=== PATIENT | female | born 1980 | race Caucasian/White ===

== ENCOUNTER 2018-06-11 21:48 | Inpatient (IN) ==
[2018-06-11] MEDS ORDERED: ZALEPLON 5 MG CAPSULE PO ONE (22:49)
[2018-06-11 23:15] LABS: Basophils % 0.3 % (0.0-0.8); Eosinophils # 0.1 10*3/uL (0.0-0.87); Eosinophils % 0.8 % (0.00-10.9); Hematocrit 31.5 VOL% (35.7-47.0); Hemoglobin 10.4 GM/DL (12.0-16.0); Immature Granulocytes % 0.7 %; Immature Granulocytes Absolute 0.05 #; Lymphocytes # 1.5 10*3/uL (1.4-4.0); Lymphocytes % 20.6 % (21.3-54.2); Mean Corpuscular Hemoglobin 29 PG (27-34); Mean Corpuscular Volume 86.5 FL (87-102); Mean Platelet Volume 11.4 FL (9.6-12.0); Monocytes # 0.6 10*3/uL (0.11-0.8); Monocytes % 7.6 % (1.7-12.7); Neutrophils # 5.2 10*3/uL (1.4-7.4); Platelet Count 175 T/CUMM (130-400); Red Blood Count 3.64 MC/CUMM (3.8-5.5); Red Cell Distribution Width 14.7 % (9.3-17.3); White Blood Count 7.4 T/CUMM (4-12)
[2018-06-11 23:30] LABS: INR 1.1; PT Patient Result 11.9 SECS; Partial Thromboplastin Time 33.9 SECS (0-40)
[2018-06-11 23:38] LABS: Alanine Aminotransferase 10 U/L (13-56); Albumin 2.9 G/DL (3.4-5.0); Alkaline Phosphatase 159 U/L (45-117); Aspartate Amino Transferase 8 U/L (0-37); Bilirubin,Total < 0.39 MG/DL (0.2-1.0); Blood Urea Nitrogen 11 MG/DL (7-18); Calcium 9.1 MG/DL (8.5-10.1); Glucose 69 MG/DL (74-106); Osmolality,Calculated 271.7 MOS/KG (273-304); Sodium 138 MMOL/L (136-145); Total Protein 6.2 G/DL (6.4-8.3); Uric Acid 5.5 MG/DL (2.6-6.0)
[2018-06-12] MEDS: LACTATED RINGERS 1,000 ML IV SCH ×3 (02:00→15:59)
[2018-06-12] MEDS ORDERED: OXYTOCIN/LR 20 UNIT/1,000 ML BAG IV SCH (02:00)
[2018-06-12] MEDS ORDERED: AMPICILLIN INJ 2,000 MG in SODIUM CHLORIDE 0.9% 100 ML IV ONE (02:00)
[2018-06-12] MEDS: ONDANSETRON 4 MG/2 ML VIAL IV PRN ×2 (05:32→12:33)
[2018-06-12] MEDS: MEPERIDINE 50 MG/1 ML VIAL IV PRN ×2 (05:32→09:46)
[2018-06-12] MEDS: AMPICILLIN INJ 1,000 MG in SODIUM CHLORIDE 0.9% 100 ML IV SCH ×3 (05:39→14:21)
[2018-06-12] MEDS ORDERED: hydrOXYzine HCL 25 MG/1 ML VIAL IM PRN (08:59)
[2018-06-12] MEDS ORDERED: NALOXONE 0.4 MG/ML VIAL IV PRN (08:59)
[2018-06-12] MEDS ORDERED: ONDANSETRON 4 MG/2 ML VIAL IV ONE (08:59)
[2018-06-12] MEDS ORDERED: diphenhydrAMINE 50 MG/1 ML VIAL IV PRN ×2 (08:59)
[2018-06-12] MEDS ORDERED: FAMOTIDINE 20 MG/2 ML VIAL IV ONE (08:59)
[2018-06-12] MEDS ORDERED: ePHEDrine 50 MG/ML AMP IV PRN (08:59)
[2018-06-12] MEDS ORDERED: CITRIC ACID/SODIUM CITRATE 30 ML UDCUP PO ONE (08:59)
[2018-06-12] MEDS ORDERED: PROMETHAZINE 25 MG/1 ML VIAL IM ONE (08:59)
[2018-06-12] MEDS ORDERED: LABETALOL 200 MG TABLET PO SCH (09:00)
[2018-06-12] MEDS ORDERED: fentaNYL 2 MCG/ROPIV 0.2% EPID 100 ML EPIDURAL SCH (09:00)
[2018-06-12] MEDS ORDERED: DEXTROSE 5% LACTATED RINGERS 1,000 ML IV SCH (16:30)
[2018-06-12] MEDS ORDERED: OXYTOCIN/LR 30 UNIT/1,000 ML BAG IV ONE (17:04)
[2018-06-12] MEDS ORDERED: ceFAZolin 2,000 MG in PREMIX 1 EACH IV ONE (17:04)
[2018-06-12] MEDS ORDERED: OXYTOCIN 10 UNIT/ML VIAL IM ONE (17:06)
[2018-06-12] MEDS ORDERED: ceFAZolin 1,000 MG in SYRINGE 1 EACH IV ONE (17:24)
[2018-06-12 18:03] LABS: Cord Arterial Blood HCO3 26.3 MMOL/L
[2018-06-12 18:06] LABS: Cord Venous Blood HCO3 22.6 MMOL/L; Cord Venous Blood PCO2 42.4 MMHG; Cord Venous Blood PO2 36.8 MMHG
[2018-06-12] MEDS ORDERED: SODIUM CHLORIDE 0.9% 1,000 ML IV PRN ×2 (18:08→18:09)
[2018-06-12] MEDS ORDERED: MORPHINE 10 MG/10 ML VIAL ONE (18:42)
[2018-06-12] MEDS ORDERED: OXYTOCIN/LR 20 UNIT/1,000 ML BAG IV ONE (18:44)
[2018-06-12] MEDS ORDERED: ACETAMINOPHEN 325 MG TABLET PO PRN (18:44)
[2018-06-12] MEDS ORDERED: MAGNESIUM HYDROXIDE SUSP 30 ML UDCUP PO PRN (18:44)
[2018-06-12] MEDS ORDERED: RHO(D) IMMUNE GLOBULIN 300 MCG SYRINGE IM ONE (18:44)
[2018-06-12] MEDS ORDERED: ONDANSETRON 4 MG/2 ML VIAL IV PRN (18:44)
[2018-06-12] MEDS ORDERED: PROPOFOL 200 MG/20 ML VIAL IV ONE (18:54)
[2018-06-12] MEDS ORDERED: ONDANSETRON 4 MG/2 ML VIAL ONE (18:54)
[2018-06-12] MEDS ORDERED: LIDOCAINE MPF 2% /EPI 20 ML VIAL ONE (18:54)
[2018-06-12] MEDS ORDERED: SODIUM BICARBONATE 2.4 MEQ/5 ML VIAL ONE (18:54)
[2018-06-12] MEDS ORDERED: PHENYLEPHRINE 1 MG/10 ML SYRINGE IV ONE (18:55)
[2018-06-12] MEDS ORDERED: LACTATED RINGERS 1,000 ML IV SCH (19:00)
[2018-06-12 20:08] LABS: Hematocrit 30.5 VOL% (35.7-47.0); Hemoglobin 9.8 GM/DL (12.0-16.0)
[2018-06-12] MEDS ORDERED: PROMETHAZINE 25 MG/1 ML VIAL ONE (20:23)
[2018-06-12] MEDS ORDERED: PROMETHAZINE 25 MG/1 ML VIAL IM PRN (20:41)
[2018-06-12] MEDS ORDERED: HYDROmorphone 2 MG/1 ML VIAL IV ONE (21:11)
[2018-06-12] MEDS: DOCUSATE SODIUM 100 MG CAPSULE PO SCH (21:28)
[2018-06-12] MEDS: ZALEPLON 5 MG CAPSULE PO PRN (23:21)
[2018-06-13] MEDS: ceFAZolin 1,000 MG in SYRINGE 1 EACH IV SCH ×2 (00:55→09:09)
[2018-06-13] MEDS: IBUPROFEN 800 MG TABLET PO PRN ×3 (05:19→20:50)
[2018-06-13] MEDS ORDERED: METOCLOPRAMIDE 10 MG TABLET PO PRN (08:33)
[2018-06-13] MEDS ORDERED: FLUoxetine 20 MG CAPSULE PO SCH (09:00)
[2018-06-13] MEDS: MULTIVITAMIN (PRENATAL) TABLET PO SCH (09:06)
[2018-06-13] MEDS: DOCUSATE SODIUM 100 MG CAPSULE PO SCH (09:06)
[2018-06-13] MEDS: SIMETHICONE CHEW 80 MG TABLET PO PRN ×2 (09:06→20:51)
[2018-06-13 11:39] LABS: Basophils % 0.3 % (0.0-0.8); Eosinophils # 0.1 10*3/uL (0.0-0.87); Eosinophils % 0.5 % (0.00-10.9); Hematocrit 33.8 VOL% (35.7-47.0); Immature Granulocytes % 0.6 %; Immature Granulocytes Absolute 0.07 #; Lymphocytes # 1.5 10*3/uL (1.4-4.0); Lymphocytes % 12.6 % (21.3-54.2); Mean Corpuscular HGB Conc 32.5 GM/DL (32-36); Mean Corpuscular Hemoglobin 28 PG (27-34); Mean Platelet Volume 10.8 FL (9.6-12.0); Monocytes # 0.7 10*3/uL (0.11-0.8); Monocytes % 5.9 % (1.7-12.7); Neutrophils # 9.5 10*3/uL (1.4-7.4); Neutrophils % 80.1 % (38.7-73.9); Platelet Count 178 T/CUMM (130-400); Red Blood Count 3.93 MC/CUMM (3.8-5.5); White Blood Count 11.8 T/CUMM (4-12)
[2018-06-13] MEDS: oxyCODONE/ACETAMINOPHEN 5-325 MG TABLET PO PRN ×2 (13:55→21:38)
[2018-06-13] MEDS ORDERED: BISACODYL 10 MG SUPP RECTAL PRN (18:22)
[2018-06-14] MEDS: oxyCODONE/ACETAMINOPHEN 5-325 MG TABLET PO PRN ×3 (02:50→18:52)
[2018-06-14] MEDS: DOCUSATE SODIUM 100 MG CAPSULE PO SCH ×3 (03:48→20:04)
[2018-06-14] MEDS: MULTIVITAMIN (PRENATAL) TABLET PO SCH (08:47)
[2018-06-14] MEDS: IBUPROFEN 800 MG TABLET PO PRN ×2 (08:47→18:52)
[2018-06-14] MEDS: SIMETHICONE CHEW 80 MG TABLET PO PRN (08:47)
[2018-06-14] MEDS: FUROSEMIDE 40 MG TABLET PO SCH ×2 (15:27→21:49)
[2018-06-14] MEDS: ZALEPLON 5 MG CAPSULE PO PRN (23:15)
[2018-06-15] MEDS: FUROSEMIDE 40 MG TABLET PO SCH (06:01)
[2018-06-15] MEDS: IBUPROFEN 800 MG TABLET PO PRN (09:46)
[2018-06-15] MEDS: MULTIVITAMIN (PRENATAL) TABLET PO SCH (09:46)
[2018-06-15] MEDS: oxyCODONE/ACETAMINOPHEN 5-325 MG TABLET PO PRN (09:47)
[2018-06-15 12:37] VITALS: BP 138/82
== END 2018-06-15 13:00 | disposition home or self-care (01) | DRG 785 ==
LOC: N.LD 21:48 → N.OB 06-12 23:13
PROVIDERS: ADMIT Obstetrics & Gynecology; ATTEND Obstetrics & Gynecology

== ENCOUNTER 2018-11-21 11:00 | Inpatient (IN) ==
[2018-11-21] MEDS ORDERED: PANTOPRAZOLE 40 MG VIAL IV STA (11:13)
[2018-11-21] MEDS ORDERED: SODIUM CHLORIDE 0.9% 1,000 ML IV STA (11:13)
[2018-11-21] MEDS ORDERED: HYDROmorphone 2 MG/1 ML VIAL IV STA (11:13)
[2018-11-21] MEDS ORDERED: ONDANSETRON 4 MG/2 ML VIAL IV STA (11:13)
[2018-11-21 11:25] LABS: Basophils # 0.1 10*3/uL (0.0-0.2); Basophils % 0.4 % (0.0-0.8); Eosinophils # 0.1 10*3/uL (0.0-0.87); Eosinophils % 0.6 % (0.00-10.9); Hematocrit 48.4 VOL% (35.7-47.0); Hemoglobin 15.5 GM/DL (12.0-16.0); Immature Granulocytes % 0.3 %; Immature Granulocytes Absolute 0.04 #; Lymphocytes # 1.3 10*3/uL (1.4-4.0); Mean Corpuscular Volume 86.7 FL (87-102); Mean Platelet Volume 10.5 FL (9.6-12.0); Monocytes % 3.5 % (1.7-12.7); Neutrophils % 84.2 % (38.7-73.9); Platelet Count 300 T/CUMM (130-400); Red Blood Count 5.58 MC/CUMM (3.8-5.5); Red Cell Distribution Width 14.4 % (9.3-17.3); White Blood Count 11.8 T/CUMM (4-12)
[2018-11-21 11:46] LABS: Albumin 4.1 G/DL (3.4-5.0); Bilirubin,Total 0.4 MG/DL (0.2-1.0); Calcium 9.4 MG/DL (8.5-10.1); Osmolality,Calculated 281.3 MOS/KG (273-304); Total Protein 7.4 G/DL (6.4-8.3)
[2018-11-21] MEDS: CIPROFLOXACIN INJ 400 MG in PREMIX 1 EACH IV SCH (13:30)
[2018-11-21] MEDS ORDERED: HYDROmorphone 2 MG/1 ML VIAL IV PRN (14:16)
[2018-11-21] MEDS ORDERED: ACETAMINOPHEN 325 MG TABLET PO PRN (14:50)
[2018-11-21] MEDS ORDERED: CLORAZEPATE 3.75 MG TABLET PO PRN (14:50)
[2018-11-21] MEDS ORDERED: HYDROmorphone 2 MG/1 ML VIAL IV ONE (15:23)
[2018-11-21] MEDS: SODIUM CHLORIDE 0.9% 1,000 ML IV SCH (15:33)
[2018-11-21 15:42] LABS: Apearance,Urine CLEAR (Clear); Bilirubin,Urine Negative (Negative); Blood, Urine Negative (Negative); Glucose,Urine (UA) Negative (Negative); Ketones,Urine Negative (Negative); Nitrite,Urine Negative (Negative); Protein,Urine Negative; RBC,Urine 4 /HPF (0-4); Squamous Epithelial Cell,Urine Occasional /HPF (0-10); Urine Color Yellow (Yellow); Urine Specific Gravity > 1.060 (1.001-1.035); Urine Urobilinogen < 2.0 EU/DL (0.2-1.0); WBC,Urine <1 /HPF (0-6)
[2018-11-21] MEDS: metroNIDAZOLE INJ 500 MG in PREMIX 1 EACH IV SCH (16:41)
[2018-11-21] MEDS ORDERED: CLINDAMYCIN 1% LOTION 60 ML BOTTLE TOP SCH (21:00)
[2018-11-21] MEDS: HYDROmorphone 2 MG/1 ML VIAL IV PRN (22:21)
[2018-11-21] MEDS: ONDANSETRON 4 MG/2 ML VIAL IV PRN (22:22)
[2018-11-21] MEDS: DOCUSATE SODIUM 100 MG CAPSULE PO SCH (23:25)
[2018-11-22] MEDS: metroNIDAZOLE INJ 500 MG in PREMIX 1 EACH IV SCH ×3 (00:02→15:36)
[2018-11-22] MEDS: ZALEPLON 5 MG CAPSULE PO PRN ×2 (00:58→21:53)
[2018-11-22] MEDS: SODIUM CHLORIDE 0.9% 1,000 ML IV SCH ×3 (00:59→21:56)
[2018-11-22] MEDS: CIPROFLOXACIN INJ 400 MG in PREMIX 1 EACH IV SCH ×2 (01:10→13:21)
[2018-11-22 06:00] LABS: Basophils % 0.2 % (0.0-0.8); Eosinophils # 0.1 10*3/uL (0.0-0.87); Eosinophils % 1.7 % (0.00-10.9); Hemoglobin 10.5 GM/DL (12.0-16.0); Immature Granulocytes % 0.3 %; Immature Granulocytes Absolute 0.02 #; Lymphocytes # 1.9 10*3/uL (1.4-4.0); Lymphocytes % 29.8 % (21.3-54.2); Mean Corpuscular HGB Conc 31.8 GM/DL (32-36); Mean Corpuscular Volume 89.4 FL (87-102); Mean Platelet Volume 10.5 FL (9.6-12.0); Monocytes % 4.9 % (1.7-12.7); Neutrophils % 63.1 % (38.7-73.9); Platelet Count 200 T/CUMM (130-400); Red Blood Count 3.69 MC/CUMM (3.8-5.5); Red Cell Distribution Width 14.5 % (9.3-17.3); White Blood Count 6.5 T/CUMM (4-12)
[2018-11-22 06:37] LABS: Albumin 2.7 G/DL (3.4-5.0); Bilirubin,Total 0.6 MG/DL (0.2-1.0); Calcium 7.6 MG/DL (8.5-10.1); Total Protein 5.4 G/DL (6.4-8.3)
[2018-11-22] MEDS ORDERED: Vortioxetine [Trintellix] 10 MG PO SCH (09:00)
[2018-11-22] MEDS ORDERED: ETHINYL ESTRADIOL/NORGESTREL 0.03-0.3 MG TABLET PO SCH (09:00)
[2018-11-22] MEDS ORDERED: Mesalamine [Apriso] 1.5 GM PO SCH (09:00)
[2018-11-22] MEDS: ONDANSETRON 4 MG/2 ML VIAL IV PRN ×2 (09:20→15:29)
[2018-11-22] MEDS: HYDROmorphone 2 MG/1 ML VIAL IV PRN ×2 (09:23→15:33)
[2018-11-22] MEDS: DOCUSATE SODIUM 100 MG CAPSULE PO SCH ×2 (09:26→21:53)
[2018-11-22] MEDS: PANTOPRAZOLE 40 MG TABLET PO SCH (09:26)
[2018-11-22 13:06] LABS: Alanine Aminotransferase 18 U/L (13-56); Albumin 2.9 G/DL (3.4-5.0); Alkaline Phosphatase 73 U/L (45-117); Aspartate Amino Transferase 10 U/L (0-37); Bilirubin,Total < 0.39 MG/DL (0.2-1.0); Blood Urea Nitrogen 6 MG/DL (7-18); Glucose 78 MG/DL (74-106); Osmolality,Calculated 277.3 MOS/KG (273-304); Total Protein 6.2 G/DL (6.4-8.3)
[2018-11-22] MEDS: LISINOPRIL/HCTZ 20-12.5 MG TABLET PO SCH (18:37)
[2018-11-23] MEDS: metroNIDAZOLE INJ 500 MG in PREMIX 1 EACH IV SCH ×3 (00:25→16:04)
[2018-11-23] MEDS: HYDROmorphone 2 MG/1 ML VIAL IV PRN (00:31)
[2018-11-23] MEDS: ONDANSETRON 4 MG/2 ML VIAL IV PRN (00:31)
[2018-11-23] MEDS: CIPROFLOXACIN INJ 400 MG in PREMIX 1 EACH IV SCH ×2 (01:31→13:26)
[2018-11-23 05:48] LABS: Basophils % 0.5 % (0.0-0.8); Eosinophils # 0.1 10*3/uL (0.0-0.87); Eosinophils % 1.8 % (0.00-10.9); Hematocrit 32.7 VOL% (35.7-47.0); Hemoglobin 10.1 GM/DL (12.0-16.0); Immature Granulocytes % 0.2 %; Immature Granulocytes Absolute 0.01 #; Lymphocytes # 1.6 10*3/uL (1.4-4.0); Lymphocytes % 37.4 % (21.3-54.2); Mean Corpuscular HGB Conc 30.9 GM/DL (32-36); Mean Corpuscular Volume 89.6 FL (87-102); Mean Platelet Volume 10.5 FL (9.6-12.0); Monocytes % 5.9 % (1.7-12.7); Neutrophils % 54.2 % (38.7-73.9); Platelet Count 184 T/CUMM (130-400); Red Blood Count 3.65 MC/CUMM (3.8-5.5); Red Cell Distribution Width 14.3 % (9.3-17.3); White Blood Count 4.4 T/CUMM (4-12)
[2018-11-23] MEDS: PANTOPRAZOLE 40 MG TABLET PO SCH (08:48)
[2018-11-23] MEDS: DOCUSATE SODIUM 100 MG CAPSULE PO SCH (08:51)
[2018-11-23] MEDS: LISINOPRIL/HCTZ 20-12.5 MG TABLET PO SCH (08:52)
[2018-11-23] MEDS: SODIUM CHLORIDE 0.9% 1,000 ML IV SCH ×2 (10:31→10:33)
[2018-11-23 16:35] VITALS: BP 136/80
[2018-11-23] MEDS ORDERED: CIPROFLOXACIN 500 MG TABLET PO ONE (19:52)
[2018-11-26 20:35] LABS: Saccharomyces cerevisiae IgA 10.1 U
== END 2018-11-23 20:32 | disposition home or self-care (01) | DRG 392 ==
LOC: N.ED 11:00 → N.EDINP 13:10 → N.OB 14:24
PROVIDERS: ADMIT Family Medicine; ATTEND Family Medicine